=== PATIENT | male | born 1955 | race American Indian/Alaskan Native ===

== ENCOUNTER 2016-07-19 17:54 | Emergency (ER) | payer BC ==
[2016-07-19 18:08] VITALS: BP 138/83
--- NOTE | 2016-07-19 20:21 | Emergency Department Report ---
HPI - General Chief Complaint: Extremity Injury, Lower Time Seen by Provider: 07/19/16 19:57 - HPI HPI: he is a 61-year-old male with no prior medical history who presents to ED complaining of right foot pain times a long time. Patient states he has a history of calluses on the bottom of his right foot and today he went to put on his boot and he could improve his blood because of pain. Patient states he puts on a boot at work every day. Patient states he is soaking his foot and some Robbie foot solution with some relief. He denies fevers/chills/nausea/vomiting any trauma or fall or injury to the foot. ED Past Medical Hx - Past Medical History Additional medical history: ULCERS - Surgical History Past Surgical History?: No - Social History Smoking Status: Current Every Day Smoker Substance Use Type: Alcohol - Medications Home Medications: Home Medications Medication Instructions Recorded Confirmed Last Taken Type Acetaminophen [Tylenol Arthritis] 650 mg PO TID #30 tablet.er 07/19/16 Unknown Rx Cyclobenzaprine [Flexeril] 10 mg PO QHS PRN #20 tablet 07/19/16 Unknown Rx ED Review of Systems ROS: Stated complaint: RT FOOT PAIN Other details as noted in HPI Constitutional: denies: chills, fever Eyes: denies: eye pain, eye discharge, vision change ENT: denies: ear pain, throat pain Respiratory: denies: cough, shortness of breath, wheezing Cardiovascular: denies: chest pain, palpitations Endocrine: no symptoms reported Gastrointestinal: denies: abdominal pain, nausea, diarrhea Genitourinary: denies: urgency, dysuria Musculoskeletal: denies: back pain, joint swelling, arthralgia Skin: denies: rash, lesions Neurological: denies: headache, weakness, numbness, paresthesias, confusion, abnormal gait Psychiatric: denies: anxiety, depression Hematological/Lymphatic: denies: easy bleeding, easy bruising Physical Exam - Physical Exam Vital Signs: Vital Signs 07/19/16 18:04 Temperature 98.4 F Pulse Rate 91 H Respiratory 16 Rate Blood Pressure 138/83 O2 Sat by Pulse 99 Oximetry Physical Exam: GENERAL: Alert and oriented x3, no apparent distress, Normal Gait, atraumatic. HEAD: Head is normocephalic and a-traumatic. NECK: Supple. Non edematous, No carotid bruits. No lymphadenopathy or thyromegaly. No C-spine tenderness LUNGS: Symetrical with respiration, No wheezing, no rales or crackles, CTAB. HEART: S1, S2 present, regular rate and rhythm without murmur, no rubs, no gallops. EXTREMITIES/MUSCULOSKELETAL: No cyanosis, clubbing, rash, lesions or edema. Full ROM bilaterally. UE/LE Pulses 2+ bilaterally. LE and UE 5+ strength bilaterally, straight leg raise negative bilaterally. Ankle joint is intact. Hard and bone palpated anterior medial aspect of the ankle. Nontender to palpation. Bottom of the foot mildly tender to palpation. Toes are intact no laceration no injuries noted NEUROLOGIC: The patient is cooperative with no focal neurologic deficits. Cranial nerves II through XII are grossly intact. Normal speech. Normal sensation in bilateral lower extremities, No loss of sensation, PSYCHIATRIC: Mood is congruent with affect, denies suicidal or homicidal ideations. SKIN: Warm and dry, No lesions, No ulceration or induration present. ED Course Vital Signs 07/19/16 18:04 Temperature 98.4 F Pulse Rate 91 H Respiratory 16 Rate Blood Pressure 138/83 O2 Sat by Pulse 99 Oximetry ED Medical Decision Making - Radiology Data Radiology results: report reviewed, image reviewed FINAL REPORT PROCEDURE: XR FOOT 3 RT TECHNIQUE: RIGHT foot radiographs, AP, lateral, and oblique views. CPT 30228 HISTORY: right foot Pain COMPARISON: No prior studies are available for comparison. FINDINGS: No acute fracture or dislocation is visualized. Moderate osteoarthritis seen in the MTP joint of the great toe. Bones appear to be mildly demineralized. Vascular calcifications are seen crossing the ankle into the anterior aspect of the foot. IMPRESSION: Osteoarthritis. Small vessel calcifications seen. This can be associated with diabetes. Osteoporosis. No acute abnormality is seen. Transcribed By: IMAN Dictated By: CHANDA ROBB MD Electronically Authenticated By: CHANDA ROBB MD Signed Date/Time: 07/19/162025 - Medical Decision Making 61-year-old male presents with osteoarthritis of the foot ED course: Foot x-ray was ordered. X-ray of the foot shows impressions as stated above Discussed the patient and findings from x-ray. Discussed with patient no fracture or dislocation. Discussed follow-up with primary care physician as well as foot doctor. Discussed the patient to follow-up to be evaluated for diabetes. Patient states he is not a diabetic and takes no medication. Discussed weakening of the bones/osteoporosis with the patient. Vital signs are normal patient is in no acute distress. Critical care attestation.: If time is entered above; I have spent that time in minutes in the direct care of this critically ill patient, excluding procedure time. ED Disposition Clinical Impression: Foot pain, right Osteoarthritis Qualifiers: Osteoarthritis location: foot Osteoarthritis type: unspecified Laterality: right Qualified Code(s): M19.071 - Primary osteoarthritis, right ankle and foot Disposition: DISCHARGED TO HOME OR SELFCARE Is pt being admited?: No Does the pt Need Aspirin: No Condition: Stable Instructions: Arthralgia (ED), Osteoarthritis (ED) Prescriptions: Cyclobenzaprine [Flexeril] 10 mg PO QHS PRN #20 tablet PRN Reason: Muscle Spasm Acetaminophen [Tylenol Arthritis] 650 mg PO TID #30 tablet.er Referrals: JULIO CESAR COON DPM [Referring] - 3-5 Days PRIMARY CARE, [Primary Care Provider] - 3-5 Days [facility] [place] [facility] [place]] - 3-5 Days [facility] [Outside] - 3-5 Days Forms: Work/School Release Form(ED) Time of Disposition: 20:41
--- NOTE | 2016-07-19 20:32 | XRay Report ---
FINAL REPORT PROCEDURE: XR FOOT 3 RT TECHNIQUE: RIGHT foot radiographs, AP, lateral, and oblique views. CPT 32436 HISTORY: right foot Pain COMPARISON: No prior studies are available for comparison. FINDINGS: No acute fracture or dislocation is visualized. Moderate osteoarthritis seen in the MTP joint of the great toe. Bones appear to be mildly demineralized. Vascular calcifications are seen crossing the ankle into the anterior aspect of the foot. IMPRESSION: Osteoarthritis. Small vessel calcifications seen. This can be associated with diabetes. Osteoporosis. No acute abnormality is seen.
== END 2016-07-19 20:50 | disposition home or self-care (01) ==
LOC: ED 17:54
DX: M19.071 Primary osteoarthritis, right ankle and foot (principal); F17.200 Nicotine dependence, unspecified, uncomplicated
CPT/HCPCS: 82962; 99283

== ENCOUNTER 2016-11-13 15:35 | Emergency (ER) | payer BC ==
--- NOTE | 2016-11-13 15:50 | Emergency Department Report ---
- HPI History of Present Illness: PT c/o R foot pain since Saturday. PT states he has has hx of foot pain and was seen in July. PT states he does not remember the dx. XR report reviewed. PT with OA and osteoporosis - ROS Review of Systems: - fever - chill - Exam Physical Exam: thin male, no acute distress steady gait with cane MSE screening note: Focused history and physical exam performed. Due to findings the following was ordered: due to pt's hx of osteoporosis will order xr <MELINA DE LEON - Last Filed: 11/13/16 15:48> - Exam Vital Signs: Vital Signs 11/13/16 15:48 Temperature 98.1 F Pulse Rate 89 Respiratory 18 Rate Blood Pressure 129/69 O2 Sat by Pulse 98 Oximetry MSE screening note: Focused history and physical exam performed. Due to findings the following was ordered: <SAE GOMEZ - Last Filed: 11/13/16 15:57> Stated Complaint: FOOT PAIN Time Seen by Provider: 11/13/16 15:46 ED Disposition for MSE <MELINA DE LEON - Last Filed: 11/13/16 15:48> <SAE GOMEZ - Last Filed: 11/13/16 15:57> Condition: Stable
--- NOTE | 2016-11-13 23:55 | XRay Report ---
FINAL REPORT PROCEDURE: XR FOOT 3+V RT TECHNIQUE: RIGHT foot radiographs, AP, lateral, and oblique views. CPT 65258 HISTORY: pain, hx of osteoporosis COMPARISON: No prior studies are available for comparison. FINDINGS: Fracture (s) and/or Dislocation(s): None . Alignment: Normal . Joint space(s): Normal . Soft tissues: Normal . Bone mineralization: Mild degree osteophyte formation is noted involving calcaneocuboid joint.. Foreign bodies: None . Calcaneal spurring: None . IMPRESSION: No acute fracture. Osteoarthritis calcaneocuboid joint..
[2016-11-13] MEDS ORDERED: NORCO 7.5/325 PO ONE (23:56)
[2016-11-13] MEDS ORDERED: FLEXERIL PO ONE (23:56)
--- NOTE | 2016-11-14 01:18 | Emergency Department Report ---
ED Lower Extremity HPI - General Chief Complaint: Extremity Injury, Lower Stated Complaint: FOOT PAIN Time Seen by Provider: 11/13/16 15:46 Source: patient Mode of arrival: Ambulatory Limitations: No Limitations - History of Present Illness Initial Comments: 61 year old male presents to ED with chronic right foot pain x5-6 months. patient states he was seen months ago and diagnosed with arthritis in right foot. patient denies history of Diabetes or gout. patient is stable , neurologically intact and in no acute distress. patient is ambulatory with normal observed gait. patient has normal right dorsalis pedis pulses, full ROM of right foot and intact sensation of right foot. patient has had xray ordered in triage prior to being seen by me. Complaint: other (foot pain ) -: Gradual, month(s) Injury: Foot: Right Severity: mild Improves With: nothing Worsens With: weight bearing, movement Associated Symptoms: ambulatory. denies: snap/pop sensation, swelling, numbness - Related Data Previous Rx's Medication Instructions Recorded Last Taken Type Acetaminophen [Tylenol Arthritis] 650 mg PO TID #30 tablet.er 07/19/16 Unknown Rx Cyclobenzaprine [Flexeril] 10 mg PO QHS PRN #20 tablet 07/19/16 Unknown Rx Allergies Allergy/AdvReac Type Severity Reaction Status Date / Time ibuprofen [From Advil] AdvReac STOMACH Verified 07/19/16 18:08 ULCERS ED Review of Systems ROS: Stated complaint: FOOT PAIN Other details as noted in HPI Constitutional: denies: chills, fever Eyes: denies: eye pain, eye discharge, vision change ENT: denies: ear pain, throat pain Respiratory: denies: cough, shortness of breath, wheezing Cardiovascular: denies: chest pain, palpitations Endocrine: no symptoms reported Gastrointestinal: denies: abdominal pain, nausea, diarrhea Genitourinary: denies: urgency, dysuria Musculoskeletal: arthralgia. denies: back pain, joint swelling Skin: denies: rash, lesions Neurological: denies: headache, weakness, numbness, paresthesias, confusion, abnormal gait, vertigo Psychiatric: denies: anxiety, depression Hematological/Lymphatic: denies: easy bleeding, easy bruising ED Past Medical Hx - Past Medical History Additional medical history: ULCERS - Surgical History Past Surgical History?: No - Social History Smoking Status: Current Every Day Smoker Substance Use Type: Alcohol - Medications Home Medications: Home Medications Medication Instructions Recorded Confirmed Last Taken Type Acetaminophen [Tylenol Arthritis] 650 mg PO TID #30 tablet.er 07/19/16 Unknown Rx Cyclobenzaprine [Flexeril] 10 mg PO QHS PRN #20 tablet 07/19/16 Unknown Rx ED Physical Exam - General Limitations: No Limitations General appearance: alert, in no apparent distress - Head Head exam: Present: atraumatic, normocephalic - Eye Eye exam: Present: normal appearance - ENT ENT exam: Present: mucous membranes moist - Neck Neck exam: Present: normal inspection, full ROM - Respiratory Respiratory exam: Present: normal lung sounds bilaterally. Absent: respiratory distress, wheezes - Cardiovascular Cardiovascular Exam: Present: regular rate, normal rhythm. Absent: systolic murmur, diastolic murmur, rubs, gallop - GI/Abdominal GI/Abdominal exam: Present: soft, normal bowel sounds. Absent: distended, tenderness - Rectal Rectal exam: Present: deferred - Extremities Exam Extremities exam: Present: normal inspection, full ROM, normal capillary refill. Absent: tenderness, joint swelling - Back Exam Back exam: Present: normal inspection, full ROM. Absent: tenderness - Neurological Exam Neurological exam: Present: alert, oriented X3 - Psychiatric Psychiatric exam: Present: normal affect, normal mood - Skin Skin exam: Present: warm, dry, intact, normal color. Absent: rash ED Course Vital Signs 11/13/16 11/14/16 15:48 01:46 Temperature 98.1 F 99.0 F Pulse Rate 89 102 H Respiratory 18 16 Rate Blood Pressure 129/69 Blood Pressure 114/78 [Right] O2 Sat by Pulse 98 98 Oximetry ED Lower Extremity MDM - Radiology Data Radiology results: report reviewed XR right foot No acute fracture. Osteoarthritis calcaneocuboid joint. - Medical Decision Making 61 year old male presents to ED with chronic right foot pain. patient has imaging study positive for osteoarthritis. 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 patient is stable, neurologically intact and in no acute distress. patient is ambulatory with normal observed gait. Critical care attestation.: If time is entered above; I have spent that time in minutes in the direct care of this critically ill patient, excluding procedure time. ED Disposition Clinical Impression: Arthritis of foot, right Disposition: - TO HOME OR SELFCARE Is pt being admited?: No Does the pt Need Aspirin: No Condition: Stable Instructions: Osteoarthritis (ED) Additional Instructions: [facility]: Kassandra Kate DPM Address: [address] [place] [id number] [facility] [employer] in [place], [place] Address: [address], [place] [address] Referrals: PRIMARY CARE, [Primary Care Provider] - 2-3 Days Forms: Work/School Release Form(ED)
[2016-11-14 01:48] VITALS: BP 114/78
== END 2016-11-14 01:48 | disposition home or self-care (01) ==
LOC: ED 15:35
DX: M13.871 Other specified arthritis, right ankle and foot (principal); F17.200 Nicotine dependence, unspecified, uncomplicated; Z88.6 Allergy status to analgesic agent
CPT/HCPCS: 99283